=== PATIENT | male | born 1980 | race Caucasian/White ===

== ENCOUNTER 2016-12-06 19:00 | Emergency (ER) | payer OTHER ==
[~2016-12-06] VITALS: Ht 177.8 cm; Wt 84.1 kg
[~2016-12-06 19:00] MED LIST: ADDERALL XR 2020 MG; ADDERALL10 MG PO; ADDERALL5 MG; ALEVE220 M2 PO; CELEXA40 MG PO; FLEXERIL5 MG PO; K-DUR20 MEQ PO; MOTRIN600 MG PO; MOTRIN800 MG PO; NAPROSYN500 MG PO; NORCO 5/3251 TABLET PO; NYSTATIN100000 UN1 PO; PRILOSEC40 MG PO; RISPERDAL0.5 MG PO; SEROQUEL100 MG PO; SUBOXONE 8 MG-1 EAC2 SL; ULTRAM50 MG PO; VENTOLIN HFA18 GM IH; ZOFRAN4 MG PO; ZOLPIDEM TARTRA10 MG PO
[2016-12-06 19:29] LABS: HEMATOCRIT 46.4 % (38.0-50.0); MCH 29.8 PG (29.0-34.0); MCHC 34.1 G/DL (30.0-36.0); MCV 87.5 FL (86-99); MEAN PLAT.VOLUME 9.9 uM^3 (9.0-12.4); PLATELET COUNT 321 K/uL (156-360); RBC DIS.WIDTH-CV 12.3 % (11.8-14.6); RBC DIS.WIDTH-SD 39.4 % (39-53)
[2016-12-06 19:43] LABS: CHLORIDE 108 mEq/L (99-109); POTASSIUM 4.1 mEq/L (3.7-5.4); SODIUM 138 mEq/L (136-147)
[2016-12-06 19:45] LABS: GLUCOSE 96 mg/dL (70-99)
[2016-12-06 19:46] LABS: ANION GAP 7 MEQ/L (2-14)
[2016-12-06 19:48] LABS: SERUM ETHYL ALCOHOL < 10 mg/dL
[2016-12-06 19:49] LABS: GFR ESTIMATE (CALCULATED) > 59 mL/min/
[2016-12-06 19:50] LABS: UREA NITROGEN (BUN) 11 mg/dL (9-23)
[2016-12-06 21:51] VITALS: BP 117/89
== END 2016-12-06 21:51 | disposition home or self-care (01) ==
LOC: EME 19:00
PROVIDERS: Emergency Medicine
DX: F32.9 Major depressive disorder, single episode, unspecified (principal); F17.200 Nicotine dependence, unspecified, uncomplicated
CPT/HCPCS: 80048; 85027; 90837; 99281; 99283; G0480

== ENCOUNTER 2017-12-07 16:54 | Emergency (ER) | payer OTHER ==
[~2017-12-07] VITALS: Ht 177.8 cm; Wt 73.9 kg
[2017-12-07 18:02] LABS: HEMATOCRIT 44.9 % (38.0-50.0); MCH 30.7 PG (29.0-34.0); MCHC 35.6 G/DL (30.0-36.0); MCV 86.2 FL (86-99); PLATELET COUNT 364 K/uL (156-360); RBC DIS.WIDTH-CV 12.1 % (11.8-14.6); RBC DIS.WIDTH-SD 38.2 % (39-53); RED BLOOD COUNT 5.21 M/uL (4.00-5.50); WHITE BLOOD COUNT 9.8 K/uL (4.1-10.2)
[2017-12-07 18:12] LABS: ALBUMIN 4.6 g/dL (3.2-4.8); CHLORIDE 106 mEq/L (99-109); POTASSIUM 3.5 mEq/L (3.7-5.4); SODIUM 141 mEq/L (136-147)
[2017-12-07 18:15] LABS: GLUCOSE 102 mg/dL (70-99); TOTAL PROTEIN 7.4 g/dL (6.4-8.3)
[2017-12-07 18:16] LABS: APPEARANCE CLOUDY ((CLEAR)); BILIRUBIN NEGATIVE; BLOOD SMALL; COLOR AMBER ((YELLOW)); GLUCOSE (STRIP) NEGATIVE; KETONES 5; LEUKOCYTES NEGATIVE; NITRITE NEGATIVE; PROTEIN (STRIP) 30; SPECIFIC GRAVITY 1.031 (1.000-1.030)
[2017-12-07 18:17] LABS: TOTAL BILIRUBIN 1.2 mg/dL (0.0-1.0)
[2017-12-07 18:18] LABS: ALKALINE PHOSPHATASE 49 IU/L (3-129); CREATININE 0.9 mg/dL (0.6-1.3); GFR ESTIMATE (CALCULATED) > 59 mL/min/ (58.99-99999)
[2017-12-07 18:19] LABS: UREA NITROGEN (BUN) 8 mg/dL (9-23)
[2017-12-07 18:20] LABS: AST (GOT) 50 IU/L (2-34)
[2017-12-07 18:21] LABS: ALT (GPT) 33 IU/L (3-49)
[2017-12-07 18:31] LABS: BACTERIA RARE /HPF; EPITHELIAL CELLS NONE SEEN /HPF; MUCUS NONE SEEN /LPF; RED BLOOD CELLS NONE SEEN /HPF (0-5); WHITE BLOOD CELLS NONE SEEN /HPF (0-5)
[2017-12-07 18:32] LABS: AMORPHOUS URATES CRYSTALS 4+
[2017-12-07] MEDS ORDERED: PEN-VEE K,VEET500 MG PO (19:32)
[2017-12-07] MEDS ORDERED: BENTYL20 MG PO (19:32)
[2017-12-07 20:01] VITALS: BP 118/82
== END 2017-12-07 20:02 | disposition home or self-care (01) ==
LOC: EME 16:54
PROVIDERS: Physician Assistant
DX: K62.5 Hemorrhage of anus and rectum (principal); K04.7 Periapical abscess without sinus; R10.10 Upper abdominal pain, unspecified; R42 Dizziness and giddiness; R35.0 Frequency of micturition; R19.7 Diarrhea, unspecified; R11.0 Nausea; F17.200 Nicotine dependence, unspecified, uncomplicated
CPT/HCPCS: 80053; 81003; 85027; 99281; 99284